=== PATIENT | female | born 1955 | race Caucasian/White ===

== ENCOUNTER 2017-06-13 09:51 | Inpatient (IN) ==
[2017-06-13 10:23] LABS: MANUAL DIFF NEEDED? NO
[2017-06-13 10:27] LABS: BASO% 0.3 % (0.0-0.8); EOS# 0.06 X1000 (0.0-0.7); EOS% 0.6 % (0.0-10.0); HEMATOCRIT 45.9 % (37.0-47.0); HEMOGLOBIN 16.4 g/dL (12.0-16.0); LYMPH# 2.49 X1000 (1.2-3.4); LYMPH% 26.9 % (20.5-51.1); MCH 33.1 PG (27-31); MCHC 35.7 g/dL (33-37); MCV 92.5 FL (81-99); MONO# 0.71 X1000 (0.11-0.59); MONO% 7.7 % (1.7-9.3); MPV 10.5 FL (7.4-10.4); NEUT% 64.5 % (42.2-75.2); PLT 244 X1000 (130-400); RBC 4.96 XMIL (4.2-5.4)
[2017-06-13 10:40] LABS: INR 0.97; PROTIME 10.2 Seconds (9.2-11.7); PTT 28.7 Seconds (22.0-36.0)
[2017-06-13 10:43] LABS: AGAP 11; ALBUMIN 4.6 g/dL (3.5-5.0); ALKALINE PHOSPHATASE 87 U/L (32-104); BUN 7 mg/dL (8-22); CALCIUM 9.9 mg/dL (8.8-10.2); CHLORIDE 91 mmol/L (98-107); COSMO 268; GOT 26 U/L (10-30); GPT 22 U/L (10-36); POTASSIUM 5.1 mmol/L (3.5-5.1); SODIUM 134 mmol/L (136-145); TCO2 32 mmol/L (25-35); TOTAL PROTEIN 8.2 g/dL (6.3-8.3)
[2017-06-13 11:34] LABS: URINE MICRO REVIEW NEEDED? NO; URINE SOURCE CATH
[2017-06-13 11:38] LABS: BILIRUBIN URINE NEGATIVE (NEGATIVE); BLOOD URINE TRACE (NEGATIVE); COLOR YELLOW; GLUCOSE URINE NEGATIVE (NEGATIVE); LEUKOCYTES URINE LARGE (NEGATIVE); NITRITE URINE NEGATIVE (NEGATIVE); PH URINE 7.5; PROTEIN URINE NEGATIVE (NEGATIVE); SP GRAVITY URINE 1.008; TURBIDITY URINE HAZY (CLEAR); UROBILINOGEN URINE NORMAL (NORMAL)
[2017-06-13 11:39] LABS: UR EPITHELIAL CELLS <10 /HPF (<10); URINE BACTERIA NEGATIVE /HPF; URINE CULTURE NEEDED? YES; URINE RBC <10 /HPF (<10); URINE WBC TNTC /HPF (<10)
[2017-06-13 12:24] LABS: UR AMPHETAMINES QUAL NONE DETECTED (NONE DETECT); UR BARBITUATES QUAL NONE DETECTED (NONE DETECT); UR BENZODIAZEPIN QUAL NONE DETECTED (NONE DETECT); UR CANNABINOIDS QUAL NONE DETECTED (NONE DETECT); UR COCAINE QUAL NONE DETECTED (NONE DETECT); UR METHADONE QUAL NONE DETECTED (NONE DETECT); UR OPIATES QUAL NONE DETECTED (NONE DETECT); UR OXYCODONE QUAL NONE DETECTED (NONE DETECT); UR PCP QUAL NONE DETECTED (NONE DETECT)
[2017-06-13] MEDS ORDERED: DUONEB (A & A) INH PRN (14:36)
[2017-06-13] MEDS ORDERED: ZOFRAN IV PRN (14:36)
[2017-06-13] MEDS: ASPIRIN PR SCH (14:49)
[2017-06-13] MEDS: LEVAQUIN 500 MG/D5W 500 MG/100 ML IVPB IV SCH (14:50)
[2017-06-13] MEDS: LOVENOX SUBQ SCH (14:50)
[2017-06-13 15:56] LABS: INR 1.03; PROTIME 10.8 Seconds (9.2-11.7)
[2017-06-13] MEDS: NS 1,000 ML IV SCH (17:43)
[2017-06-14] MEDS: NS 1,000 ML IV SCH ×2 (05:59→22:27)
[2017-06-14 06:37] LABS: HEMATOCRIT 38.9 % (37.0-47.0); HEMOGLOBIN 13.6 g/dL (12.0-16.0); MCH 32.5 PG (27-31); MCV 93.1 FL (81-99); MPV 10.4 FL (7.4-10.4); RBC 4.18 XMIL (4.2-5.4)
[2017-06-14 06:45] LABS: AGAP 12; ALBUMIN 3.1 g/dL (3.5-5.0); ALKALINE PHOSPHATASE 48 U/L (32-104); BUN 12 mg/dL (8-22); CALCIUM 7.8 mg/dL (8.8-10.2); CHLORIDE 99 mmol/L (98-107); COSMO 275; GOT 15 U/L (10-30); GPT 13 U/L (10-36); POTASSIUM 3.9 mmol/L (3.5-5.1); SODIUM 138 mmol/L (136-145); TCO2 27 mmol/L (25-35); TOTAL BILIRUBIN 0.61 mg/dL (0.20-1.00)
[2017-06-14] MEDS: ASPIRIN PR SCH (08:16)
[2017-06-14] MEDS ORDERED: ROCEPHIN 1 GM in NS 50 ML IV SCH (09:00)
[2017-06-14 10:01] LABS: ALLEN TEST YES; BE 2.1 mmoll (-3.0-3.0); BLOOD TYPE ARTERIAL; DRAW SITE R RADIAL; METHB 0.8 % (0.0-1.5); O2(CT) 18.9 mL/dL (15.0-23.0); PO2(98.6) 69 mmHg (60-100); SAMPLE BLOOD; THB 14.4 g/dL (11.5-17.4); pH(98.6) 7.34 (7.35-7.45)
[2017-06-14 10:02] LABS: PCO2(98.6) 54 mmHg (35-45)
[2017-06-14 10:03] LABS: MODALITY CANNULA
[2017-06-14] MEDS ORDERED: VASELINE TOP PRN (12:37)
[2017-06-14] MEDS: LEVAQUIN 500 MG/D5W 500 MG/100 ML IVPB IV SCH (15:29)
[2017-06-14] MEDS: LOVENOX SUBQ SCH (15:29)
[2017-06-15 05:14] LABS: MANUAL DIFF NEEDED? NO
[2017-06-15 05:22] LABS: BASO% 0.1 % (0.0-0.8); HEMATOCRIT 39.9 % (37.0-47.0); HEMOGLOBIN 14.2 g/dL (12.0-16.0); IMM GRAN# 0.02 X1000 (0.0-0.04); IMM GRAN% 0.2 % (0.0-0.5); LYMPH# 1.12 X1000 (1.2-3.4); LYMPH% 11.4 % (20.5-51.1); MCH 33.2 PG (27-31); MCHC 35.6 g/dL (33-37); MCV 93.2 FL (81-99); MONO# 0.84 X1000 (0.11-0.59); MONO% 8.5 % (1.7-9.3); MPV 10.6 FL (7.4-10.4); NEUT% 79.8 % (42.2-75.2); PLT 223 X1000 (130-400); RBC 4.28 XMIL (4.2-5.4)
[2017-06-15 05:48] LABS: AGAP 12; BUN 11 mg/dL (8-22); CHLORIDE 91 mmol/L (98-107); COSMO 261; POTASSIUM 3.1 mmol/L (3.5-5.1); SODIUM 130 mmol/L (136-145); TCO2 27 mmol/L (25-35)
[2017-06-15] MEDS: ASPIRIN PR SCH (08:47)
[2017-06-15] MEDS ORDERED: ROCEPHIN 1 GM in NS 50 ML IV SCH (09:00)
[2017-06-15] MEDS ORDERED: NS IV SCH (09:00)
[2017-06-15] MEDS ORDERED: ROCEPHIN IV SCH (09:00)
[2017-06-15 10:34] LABS: URINE MICRO REVIEW NEEDED? NO; URINE SOURCE CATH
[2017-06-15 10:39] LABS: BILIRUBIN URINE NEGATIVE (NEGATIVE); BLOOD URINE SMALL (NEGATIVE); COLOR STRAW; GLUCOSE URINE 100 mg/dL (NEGATIVE); LEUKOCYTES URINE NEGATIVE (NEGATIVE); NITRITE URINE NEGATIVE (NEGATIVE); PROTEIN URINE TRACE mg/dL (NEGATIVE); TURBIDITY URINE HAZY (CLEAR); UR EPITHELIAL CELLS <10 /HPF (<10); URINE BACTERIA NEGATIVE /HPF; URINE RBC <10 /HPF (<10); URINE WBC <10 /HPF (<10); UROBILINOGEN URINE NORMAL (NORMAL)
[2017-06-15] MEDS ORDERED: SAMSCA PO ONE (12:08)
[2017-06-15 12:16] VITALS: BP 168/92
[2017-06-15] MEDS: LOVENOX SUBQ SCH (13:33)
[2017-06-15] MEDS ORDERED: DECADRON PO SCH (14:00)
== END 2017-06-15 15:35 | disposition short-term general hospital (02) ==
LOC: ED 09:51 → ICU 14:02 → SUATTDRO 14:02 → ICU 14:15
PROVIDERS: ATTEND Internal Medicine